=== PATIENT | female | born 1995 | race Caucasian/White ===

== ENCOUNTER 2017-04-24 03:31 | Emergency (ER) | payer OTHER, BC ==
[2017-04-24 04:16] LABS: CHLORIDE,CL 101 mmol/L (98-107); SODIUM,NA 141 mmol/L (136-145)
[2017-04-24 04:22] VITALS: BP 131/79
[2017-04-24] MEDS ORDERED: Potassium Chloride 20 MEQ Tab.ER PO ONE ×2 (04:23→04:50)
--- NOTE | 2017-04-24 04:35 | EDM.PDOC ---
ED HPI GENERAL MEDICAL PROBLEM - General Chief Complaint: General Stated Complaint: chest pain Time Seen by Provider: 04/24/17 04:10 Source of Information: Reports: Patient History Limitations: Reports: No Limitations - History of Present Illness INITIAL COMMENTS - FREE TEXT/NARRATIVE: Patient brought in from [facility] after developing substernal chest pain around midnight. Pain is worse with breathing, making her feel a bit SOB. No sweating or nausea. No GI complaints. Smokes at work. Denies cough or recent URI. Sometimes has numbness in left arm. 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 Last 4 people assigned to this job got injured eventually, the most recent one with a rotator cuff tear, the one before that hit on the head by a fan. Has been having problems with chronic soreness around shoulder blades for some time. She feels that that soreness has now moved to her chest area. Pain in upper back/shoulders improves on weekends but worsens again at work. Has been going to the chiropractor and being told "ribs are out". Recently but have not been getting along. She moved to an apartment this weekend to spend time apart. Was not lifting anything heavier than clothes. 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 They before they do'. Musculoskeletal History: Reports: Other (See Below) Other Musculoskeletal History: 'I've been in & out of the chiropractor the last couple months with ribs being out of place'. Neurological History: Reports: None Psychiatric History: Reports: None Endocrine/Metabolic History: Reports: None Hematologic History: Reports: None Immunologic History: Reports: None Oncologic (Cancer) History: Reports: None Dermatologic History: Reports: None - Infectious Disease History Infectious Disease History: Reports: None - Past Surgical History Head Surgeries/Procedures: Reports: None Respiratory Surgical History: Reports: None GI Surgical History: Reports: None Female Surgical History: Reports: None Neurological Surgical History: Reports: None Musculoskeletal Surgical History: Reports: None Oncologic Surgical History: Reports: None Dermatological Surgical History: Reports: None Social & Family History - Family History Family Medical History: Noncontributory - Tobacco Use Smoking Status *Q: Current Every Day Smoker Years of Tobacco use: 5 Packs/Tins Daily: 0.4 - Caffeine Use Caffeine Use: Reports: Coffee Caffeine Use Comment: Very little caffeine per patient - Recreational Drug Use Recreational Drug Use: No ED ROS GENERAL - Review of Systems Review Of Systems: See Below Constitutional: Reports: No Symptoms HEENT: Reports: No Symptoms Respiratory: Reports: Pleuritic Chest Pain. Denies: Wheezing, Cough Cardiovascular: Reports: Chest Pain. Denies: Lightheadedness, Palpitations, Syncope GI/Abdominal: Reports: No Symptoms : Reports: No Symptoms Musculoskeletal: Reports: Neck Pain, Shoulder Pain, Back Pain Skin: Reports: No Symptoms Neurological: Reports: Paresthesia (left arm at times) Psychiatric: Reports: No Symptoms Hematologic/Lymphatic: Reports: No Symptoms ED EXAM, GENERAL - Physical Exam Exam: See Below Exam Limited By: No Limitations General Appearance: Alert, WD/WN, No Apparent Distress Eye Exam: Bilateral Eye: EOMI, PERRL Ears: Normal External Exam Nose: No: Nasal Deformity, Nasal Swelling, Nasal Drainage Throat/Mouth: Normal Inspection, Normal Voice, No Airway Compromise Head: Atraumatic, Normocephalic Neck: Supple, Other (tender along posterior neck bilaterally, muscles tight) Respiratory/Chest: No Respiratory Distress, Lungs Clear, Normal Breath Sounds, Other (tender to palpation over bilateral pecs, around sternum) Cardiovascular: Normal Peripheral Pulses, Regular Rate, Rhythm, No Edema, No Murmur Peripheral Pulses: 2+: Radial (L), Radial (R) GI/Abdominal: Normal Bowel Sounds, Soft, Non-Tender, No Distention (Female) Exam: Deferred Rectal (Female) Exam: Deferred Back Exam: Paraspinal Tenderness (thoracic area.), Other (generally tender along soft tissue of upper back/trapezius bilaterally). No: CVA Tenderness (L) , CVA Tenderness (R), Decreased Range of Motion, Vertebral Tenderness Extremities: Normal Inspection, Normal Range of Motion, Non-Tender, No Pedal Edema, Normal Capillary Refill Neurological: Alert, Oriented, Normal Cognition, Normal Gait, No Motor/Sensory Deficits Psychiatric: Flat Affect Skin Exam: Warm, Dry, Intact, Normal Color EKG INTERPRETATION EKG Date: 04/24/17 Time: 03:42 Rhythm: NSR Rate (Beats/Min): 76 [place]: Normal P-Wave: Present QRS: Normal ST-T: Normal QT: Normal Comparison: NA - No Prior EKG Course - Vital Signs Last Recorded V/S: Last Vital Signs Temp 36.9 C 04/24/17 03:34 Pulse 81 04/24/17 04:15 Resp 16 04/24/17 04:15 BP 131/79 04/24/17 04:15 Pulse Ox 100 04/24/17 04:15 - Orders/Labs/Meds Orders: Active Orders 24 hr Category Date Time Status EKG Documentation Completion [RC] ASDIRECTED Care 04/24/17 03:48 Active Chest 2V [CR] Urgent Exams 04/24/17 04:39 Ordered Labs: Laboratory Tests 04/24/17 04/24/17 04/24/17 Range/Units 03:55 03:55 03:55 WBC 11.2 H (4.0-10.2) K/uL RBC 4.23 (3.77-5.09) M/uL Hgb 13.1 (11.7-15.5) g/dL Hct 37.8 (34.0-46.0) % MCV 89.4 (84.0-98.0) fL MCH 31.0 (28.2-33.3) pg MCHC 34.7 (31.7-36.0) g/dL RDW 12.5 (11.2-14.1) % Plt Count 252 (150-350) K/uL Neut % (Auto) 69.6 (45.0-80.0) % Lymph % (Auto) 22.7 (10.0-50.0) % [place] % (Auto) 6.5 (2.0-14.0) % Eos % (Auto) 0.9 (0.0-5.0) % Baso % (Auto) 0.3 (0.0-2.0) % Neut # (Auto) 7.78 H (1.40-7.00) K/uL Lymph # (Auto) 2.53 (0.50-3.50) K/uL [place] # (Auto) 0.72 (0.00-1.00) K/uL Eos # (Auto) 0.10 (0.00-0.50) K/uL Baso # (Auto) 0.03 (0.00-0.20) K/uL D-Dimer, Quantitative < 100 (0-400) ng/mL Sodium 141 (136-145) mmol/L Potassium 3.3 L (3.5-5.1) mmol/L Chloride 101 (98-107) mmol/L Carbon Dioxide 24.2 (21.0-32.0) mmol/L BUN 18 (7-18) mg/dL Creatinine 0.91 (0.51-1.17) mg/dL Est Cr Clr Drug Dosing 85.16 mL/min Estimated GFR (MDRD) > 60 mL/min Glucose 84 (74-106) mg/dL Calcium 9.3 (8.5-10.1) mg/dL Troponin I 0.000 (0.000-0.056) ng/mL Meds: Medications Discontinued Medications Generic Name Dose Route Start Last Admin Trade Name Freq PRN Reason Stop Dose Admin Ketorolac Tromethamine 30 mg 04/24/17 05:11 04/24/17 05:15 Toradol IVPUSH 04/24/17 05:12 30 mg ONETIME ONE Administration Potassium Chloride 40 meq 04/24/17 04:23 04/24/17 04:47 Klor-Con M20 PO 04/24/17 04:24 40 meq ONETIME ONE Administration Potassium Chloride 20 meq 04/24/17 04:50 04/24/17 04:53 Klor-Con M20 PO 04/24/17 04:51 20 meq ONETIME ONE Administration - Radiology Interpretation Free Text/Narrative:: chest xray unremarkable - Re-Assessments/Exams Free Text/Narrative Re-Assessment/Exam: 04/24/17 05:26 CBC/Chem/Trop/EKG/DDimer unremarkable. Pain is reproducible with palpation over chest. Suspect musculoskeletal cause. Given patient's current home stresses with from , personal stress is likely an added factor. Discussed results with patient. Recommended limited duty for one week and follow up with primary provider. Precautions reviewed. Departure - Departure Time of Disposition: 05:21 Disposition: Home, Self-Care 01 Condition: Good Clinical Impression: Anterior chest wall pain, Repetitive movement, Pain, upper back, Hypokalemia - Discharge Information Instructions: Hypokalemia, Chest Wall Pain, [id number] Forms: ED Department Discharge Additional Instructions: Recommend eating more potassium rich food. You may benefit from taking a small potassium supplement such as 10meq daily. Consider dietary change and stress management as discussed. Yoga may also be helpful and assist the chronic tightness that you have. Make an appointment to follow up with a primary clinic for recheck next Monday to see if additional steps need to be taken to address your pain complaints. You will likely require a change in workstation at [facility] based on you current problems and their likely association to the repetitive lifting work you are currently doing. Follow up as needed if problems change/worsen. - My Orders Last 24 Hours: My Active Orders 04/24/17 03:48 EKG Documentation Completion [RC] ASDIRECTED 04/24/17 04:39 Chest 2V [CR] Urgent - Assessment/Plan Last 24 Hours: My Active Orders 04/24/17 03:48 EKG Documentation Completion [RC] ASDIRECTED 04/24/17 04:39 Chest 2V [CR] Urgent
[2017-04-24] MEDS ORDERED: Ketorolac 30 MG/ML SDV IVPUSH ONE (05:11)
== END 2017-04-24 05:45 | disposition home or self-care (01) ==
LOC: LL.ED 03:31
DX: E87.6 Hypokalemia (principal); R07.89 Other chest pain; M54.6 Pain in thoracic spine; F17.210 Nicotine dependence, cigarettes, uncomplicated; Z91.040 Latex allergy status
CPT/HCPCS: 36415; 71046; 80048; 84484; 85025; 85379; 93005; 96374; 99284; A9270; J1885

== ENCOUNTER 2019-08-07 21:36 | Emergency (ER) | payer BC, OTHER ==
[2019-08-07 21:51] VITALS: BP 121/69; PULSE 104
[2019-08-07] MEDS ORDERED: Sodium Chloride 0.9% 10 ML Syringe FLUSH PRN (21:54)
[2019-08-07] MEDS ORDERED: Acetaminophen 325 MG Tab PO ONE (21:54)
--- NOTE | 2019-08-07 21:54 | EDM.PDOC ---
ED HPI GENERAL MEDICAL PROBLEM - General Chief Complaint: Fever Stated Complaint: fever Time Seen by Provider: 08/07/19 21:54 Source of Information: Reports: Patient, Old Records ([facility] chart/EMR) History Limitations: Reports: No Limitations - History of Present Illness INITIAL COMMENTS - FREE TEXT/NARRATIVE: The patient was brought to the emergency room via private automobile by her mother for evaluation of persistent fever with maximum temperature of 102.3 yesterday evening at 21:30 hours. Patient did take 650 mg of Tylenol at 21:00 hours this evening with no known exposure to infection, including mononucleosis, strep throat, etc., although she was treated for tonsillitis without a strep screen on 04/27/19. Earlier today she received her negative COVID-19 test results, which was collected at the [facility] in [place] on 05/06/19. Symptoms have been associated with 8/10 bilateral frontal headaches, 9/10 bilateral low back pain and nausea with no history of injury, etc.. She denies any gross hematuria, colic, or other UTI symptoms. No recent history of abdominal pain, heartburn, emesis diarrhea, melena, gross hematochezia, or any food intolerance, including fatty foods, etc. with normal bowel movement earlier this morning. The patient also denies any recent cough, wheezing, dyspnea, etc.. No history of recent visual changes, diplopia, change in mental status, or other change in neurological status. She does state that she has been drinking plenty of fluids secondary to the current local heat wave. Onset: Gradual Onset Date: 08/04/19 Duration: Constant, Getting Worse Location: Reports: Head, Back. Denies: Face, Neck, Chest, Abdomen, Pelvis, Upper Extremity, Left, Upper Extremity, Right, Radiates to Quality: Reports: Same as Previous Episode, Throbbing Severity: Moderate Improves with: Reports: None Worsens with: Reports: None Context: Reports: Other (As above). Denies: Sick Contact, Trauma Associated Symptoms: Reports: Fever/Chills, Headaches, Nausea/Vomiting (No emesis). Denies: Confusion, Chest Pain, Cough, Diaphoresis, Loss of Appetite, Malaise, Rash, Shortness of Breath, Syncope Treatments SUGAR PLANTATION MANAGER: Reports: Acetaminophen Back Pain Score (Numeric/FACES): 2 - Related Data Allergies Allergy/AdvReac Type Severity Reaction Status Date / Time Latex, Natural Rubber Allergy Rash Verified 08/07/19 21:41 Home Meds: Home Meds Citalopram [Citalopram HBr] 20 mg PO DAILY 08/07/19 [History] Levothyroxine [Synthroid] 50 mcg PO ACBREAKFAST #60 tab 08/07/19 [Rx] Nitrofurantoin Monohyd/M-Cryst [Macrobid 100 mg Capsule] 100 mg PO BID #14 capsule 08/07/19 [Rx] busPIRone [Buspar] 10 mg PO DAILY 08/07/19 [History] Past Medical History HEENT History: Reports: Hard of Hearing, Other (See Below). 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 Cardiovascular History: Reports: None. Denies: Afib, Aneurysm, Arrhythmia, Blood Clots/VTE/DVT, CAD, Heart Murmur, High Cholesterol, Hypertension, Syncope Respiratory History: Reports: None. Denies: Asthma, COPD, Intubation, Previous, PE, Pneumothorax Gastrointestinal History: Reports: None. Denies: Celiac Disease, Cholelithiasis, Chronic Constipation, Chronic Diarrhea, Colon Polyp, Fecal Incontinence, Gastritis, GERD, GI Bleed, Hiatal Hernia, Inflammatory Bowel Dis ease, Irritable Bowel Syndrome, Jaundice, PUD Genitourinary History: Reports: UTI, Recurrent. Denies: Acute Renal Failure, Chronic Renal Insuffiency, Renal Calculus, STD, Urinary Incontinence MAKEUP INSTRUCTOR History: Reports: , Other (See Below). Denies: Dysfunctional Uterine Bleeding, Endometriosis, Fibroids LMP (Approximate): Other (See Below) Other MAKEUP INSTRUCTOR History: History of oligomenorrhea with menses starting today and previous LMP of 06/14/19. Full term delivery of twins by complicated by hemorrhage and secondary anemia with no transfusion required. Difficult delivery with the patient apparently refusing recommended at that time. One of the twins did pass away at 12 weeks of age of unknown etiology with otherwise no complications during her . Musculoskeletal History: Reports: Arthritis, Back Pain, Chronic, Osteoarthritis, Other (See Below). Denies: Fracture, Gout, Neck Pain, Chronic, RA, SLE Other Musculoskeletal History: Previous chronic low back pain secondary to her work at [employer] with frequent chiropractic visits. Neurological History: Reports: Concussion, Head Trauma, Other (See Below). Denies: Cerebral Aneurysms, CVA, Headaches, Chronic, Migraines, MS, Parkinson's, Seizure, TIA Other Neuro History: Head concussion at age 15. Psychiatric History: Reports: Addiction, Anxiety, Depression, Panic Attack, Psych Hospitalization(s), Suicide Attempt, Suicidal Ideation, Other (See Below). Denies: Abuse, Victim of, ADHD Other Psychiatric History: Previous inpatient hospitalization at [facility] secondary to suicide attempt the patient cutting her wrist at age 17. Additional alcohol abuse history since age 22 with previous DWIs 2. Endocrine/Metabolic History: Reports: Obesity/BMI 30+, Other (See Below). Denies: Diabetes, Gestational, Diabetes, Type I, Diabetes, Type II, Diabetes Mellitus, Type 3c, Hypothyroidism, IDDM Other Endocrine/Metabolic History: Hypokalemia. Hematologic History: Reports: Anemia, Other (See Below). Denies: Blood Transfusion(s) Other Hematologic History: anemia secondary to difficult delivery as above with no transfusion required. Immunologic History: Reports: None. Denies: AIDS, HIV, SLE Oncologic (Cancer) History: Reports: None. Denies: Breast, Cervix, Hodgkin's Lymphoma, Leukemia, Lymphoma, Malignant Melanoma, Non-Hodgkin's Lymphoma, Ovarian, Squamous Cell Carcinoma, Uterine Dermatologic History: Reports: None. Denies: Eczema, Psoriasis - Infectious Disease History Infectious Disease History: Reports: Chicken Pox. Denies: C-Difficile, Measles, Meningitis, Mononucleosis, MRSA, Mumps, Pertussis (Whooping Cough), Rheumatic Fever, Rubella, Scarlet Fever, Shingles, TB, VRE - Past Surgical History Head Surgeries/Procedures: Reports: None HEENT Surgical History: Reports: None. Denies: Adenoidectomy, Cataract Surgery, Eye Surgery, Laser Surgery, LASIK, Myringotomy w Tube(s), Naso-Sinus Surgery, Oral Surgery, Tonsillectomy Cardiovascular Surgical History: Reports: None. Denies: Varicose Respiratory Surgical History: Reports: None. Denies: Thoracentesis GI Surgical History: Reports: None. Denies: Appendectomy, Cholecystectomy, Colonoscopy, EGD, Hernia, Abdominal, Hernia, Inguinal, Hernia Repair/Other Female Surgical History: Reports: None. Denies: D&C, Tubal Ligation Endocrine Surgical History: Reports: None Neurological Surgical History: Reports: None. Denies: C-Spine, Discectomy, Laminectomy, Lumbar Spine, Sacral Spine, Spinal Fusion, Thoracic Spine Musculoskeletal Surgical History: Reports: None. Denies: Arthroscopic Procedure, Carpal Tunnel, Ganglion Cyst, Joint Replacement, ORIF, Shoulder Surgery Oncologic Surgical History: Reports: None Dermatological Surgical History: Reports: None - Past Imaging History Past Imaging History: Reports: CAT Scan (CT scan of the abdomen and pelvis on 07/20/12.), Ultrasound (OB ultrasounds) Social & Family History - Family History Family Medical History: Noncontributory - Tobacco Use Smoking Status *Q: Current Every Day Smoker Tobacco Use Within Last Twelve Months: Cigarettes Years of Tobacco use: 6 Packs/Tins Daily: 1 Packs/Tins Daily Comment: Started smoking at age 18 with maximum use of 1 packs per day, although the patient is trying to quit smoking and has not used cigarettes secondary to her current illness for the last few days. She did not smoke during her . Used Tobacco, but Quit: No Smoking Cessation Information Provided To Patient: Yes Second Hand Smoke Exposure: Yes Second Hand Smoke Education Provided: Yes Second Hand Smoke Education Comment: Roommate smokes. - Caffeine Use Caffeine Use: Reports: Soda. Denies: Coffee, Energy Drinks, Tea Caffeine Use Comment: 2 sodas per day. - Alcohol Use Alcohol Use History: Yes Days Per Week of Alcohol Use: 6 Number of Drinks Per Day Comment: Alcohol abuse since age 22 with no previous alcohol treatment program and patient currently trying to stop alcohol use Alcohol Use in Last Twelve Months: Yes Alcohol Use Frequency: Binges - Recreational Drug Use Recreational Drug Use: No Drug Use in Last 12 Months: No Recreational Drug Type: Denies: Amphetamines (Speed), Cocaine, Heroin, Inhalants (Glues, Solvents, Aerosols), LSD (Acid), Marijuana/Hashish, Methamphetamine, Morphine, Oxycodone - Living Situation & Occupation Living situation: Reports: (However currently and seeking a divorce), Other (Her child and relative roommate) Occupation: Employed ([employer]) ED ROS GENERAL - Review of Systems Review Of Systems: Comprehensive ROS is negative, except as noted in HPI. ED EXAM, GENERAL - Physical Exam Exam: See Below Exam Limited By: No Limitations General Appearance: Alert, WD/WN, No Apparent Distress, Anxious (Mild) Eye Exam: Bilateral Eye: EOMI, Normal Inspection (No nystagmus), PERRL Ears: Normal External Exam, Normal Canal, Hearing Grossly Normal, Normal TMs Nose: Normal Inspection, Normal Mucosa, No Blood Throat/Mouth: Normal Inspection, Normal Lips, Normal Teeth, Normal Gums, Normal Voice, No Airway Compromise, Other (tongue stud). No: Normal Oropharynx (+1 erythema in the posterior pharynx with no pinpoint white exudates or peritonsillar abscess) Head: Atraumatic, Normocephalic. No: Facial Swelling, Facial Tenderness, Sinus Tenderness Neck: Normal Inspection, Supple, Non-Tender, Full Range of Motion. No: Lymphadenopathy (L), Lymphadenopathy (R), Thyromegaly Respiratory/Chest: No Respiratory Distress, Lungs Clear, Normal Breath Sounds, No Accessory Muscle Use, Chest Non-Tender. No: Pleural Rub, Retractions Cardiovascular: Normal Peripheral Pulses, No Edema, No Gallop, No JVD, No Murmur, No Rub, Tachycardia (Mild secondary to fever. Regular rhythm). No: Gallop/S3, Gallop/S4, Friction Rub Peripheral Pulses: 2+: Radial (L), Radial (R) GI/Abdominal: Normal Bowel Sounds, Soft, Non-Tender, No Organomegaly, No Distention, No Abnormal Bruit, No Mass, Other (Obese). No: Guarding (Female) Exam: Deferred Rectal (Female) Exam: Deferred Back Exam: Full Range of Motion, Paraspinal Tenderness (Equivocal bilateral lower lumbar). No: CVA Tenderness (L), CVA Tenderness (R), Muscle Spasm, Vertebral Tenderness Extremities: Normal Inspection, Normal Range of Motion, Non-Tender, No Pedal Edema, Normal Capillary Refill. No: Jeff's Sign Neurological: Alert, Oriented, CN II-XII Intact, Normal Cognition, Normal Gait, No Motor/Sensory Deficits Psychiatric: Anxious (Mild), Depressed Mood (Borderline) Skin Exam: Warm, Dry, Intact, Normal Color, No Rash, Stud(s) (As above with additional piercings in the auricles bilaterally), Tattoo(s) (Multiple). No: Diaphoretic, Ecchymosis, Jaundice, Pallor, Petechiae, Wound/Incision Lymphatic: No Adenopathy Course - Vital Signs Last Recorded V/S: Last Vital Signs Temp 38.5 C H 08/07/19 21:50 Pulse 104 H 08/07/19 21:50 Resp 14 08/07/19 21:50 BP 121/69 08/07/19 21:50 Pulse Ox 95 08/07/19 21:50 Vital Signs - 24 hr 08/07/19 21:50 Temperature [ 38.5 C H Oral] Pulse, 104 H Peripheral [ Right Pulse Oximetry] Respiratory 14 Rate Blood Pressure 121/69 [Left Upper Arm ] O2 Sat by Pulse 95 Oximetry - Orders/Labs/Meds Orders: Active Orders 24 hr Category Date Time Status Oxygen Therapy, ED [RC] PRN Care 08/07/19 21:55 Active Peripheral IV Care [RC] . DIRECTED Care 08/07/19 21:55 Active Pulse Oximetry [RC] CONTINUOUS Care 08/07/19 21:55 Active Up With Assistance [RC] ASDIRECTED Care 08/07/19 21:55 Active Chest 2V [CR] Stat Exams 08/07/19 21:55 Taken CULTURE BLOOD [BC] Stat Lab 08/07/19 22:25 Received CULTURE BLOOD [BC] Stat Lab 08/07/19 22:50 Received CULTURE STREP A CONFIRMATION [RM] Stat Lab 08/07/19 22:30 Results CULTURE URINE [RM] Routine Lab 08/07/19 22:40 Received STREP SCRN A RAPID W CULT CONF [RM] Stat Lab 08/07/19 22:30 Results Blood Culture x2 Reflex Set [OM.PC] Stat Oth 08/07/19 21:55 Ordered Obtain Past Medical Record [OM.PC] Stat Oth 08/07/19 21:55 Active Peripheral IV Insertion Adult [OM.PC] Stat Oth 08/07/19 21:55 Ordered Resuscitation Status Routine Resus Stat 08/07/19 21:54 Ordered Labs: Laboratory Tests 08/07/19 08/07/19 08/07/19 Range/Units 22:25 22:25 22:25 WBC 14.0 H (4.0-10.2) K/uL RBC 4.75 (3.77-5.09) M/uL Hgb 14.3 (11.7-15.5) g/dL Hct 43.1 (34.0-46.0) % MCV 90.7 (84.0-98.0) fL MCH 30.1 (28.2-33.3) pg MCHC 33.2 (31.7-36.0) g/dL RDW 13.0 (11.2-14.1) % Plt Count 241 (150-350) K/uL Neut % (Auto) 77.0 (45.0-80.0) % Lymph % (Auto) 11.6 (10.0-50.0) % Scott % (Auto) 11.2 (2.0-14.0) % Eos % (Auto) 0.1 (0.0-5.0) % Baso % (Auto) 0.1 (0.0-2.0) % Neut # (Auto) 10.80 H (1.40-7.00) K/uL Lymph # (Auto) 1.63 (0.50-3.50) K/uL Scott # (Auto) 1.57 H (0.00-1.00) K/uL Eos # (Auto) 0.02 (0.00-0.50) K/uL Baso # (Auto) 0.02 (0.00-0.20) K/uL Sodium 135 L (136-145) mmol/L Potassium 4.1 (3.5-5.1) mmol/L Chloride 100 (98-107) mmol/L Carbon Dioxide 24.7 (21.0-32.0) mmol/L BUN 16 (7-18) mg/dL Creatinine 1.15 (0.51-1.17) mg/dL Est Cr Clr Drug Dosing TNP Estimated GFR (MDRD) 58 mL/min Glucose 93 (74-106) mg/dL Lactic Acid 0.8 (0.4-2.0) mmol/L Uric Acid 4.9 (2.6-7.2) mg/dL Calcium 9.3 (8.5-10.1) mg/dL Magnesium 2.0 (1.8-2.4) mg/dL Total Bilirubin 0.5 (0.2-1.0) mg/dL AST 36 (15-37) U/L ALT 46 (12-78) U/L Alkaline Phosphatase 116 (46-116) IU/L Total Protein 8.9 H (6.4-8.2) g/dL Albumin 3.4 (3.4-5.0) g/dL TSH, Ultra Sensitive (0.358-3.740) mIU/mL HCG, Qual (NEGATIVE) Specimen Type Urine Color Urine Appearance Urine pH (5.0-9.0) Ur Specific Clarkia (1.005-1.030) Urine Protein (NEGATIVE) mg/dL Urine Glucose (UA) (NEGATIVE) mg/dL Urine Ketones (NEGATIVE) mg/dL Urine Occult Blood (NEGATIVE) Urine Nitrite (NEGATIVE) Urine Bilirubin (NEGATIVE) Urine Urobilinogen (0.2-1.0) E.U./dL Ur Leukocyte Esterase (NEGATIVE) Urine RBC /HPF Urine WBC /HPF Ur Epithelial Cells /LPF Urine Bacteria (NONE TO FEW) /HPF Urine Other Monoscreen (NEGATIVE) 08/07/19 08/07/19 08/07/19 Range/Units 22:25 22:25 22:25 WBC (4.0-10.2) K/uL RBC (3.77-5.09) M/uL Hgb (11.7-15.5) g/dL Hct (34.0-46.0) % MCV (84.0-98.0) fL MCH (28.2-33.3) pg MCHC (31.7-36.0) g/dL RDW (11.2-14.1) % Plt Count (150-350) K/uL Neut % (Auto) (45.0-80.0) % Lymph % (Auto) (10.0-50.0) % Scott % (Auto) (2.0-14.0) % Eos % (Auto) (0.0-5.0) % Baso % (Auto) (0.0-2.0) % Neut # (Auto) (1.40-7.00) K/uL Lymph # (Auto) (0.50-3.50) K/uL Scott # (Auto) (0.00-1.00) K/uL Eos # (Auto) (0.00-0.50) K/uL Baso # (Auto) (0.00-0.20) K/uL Sodium (136-145) mmol/L Potassium (3.5-5.1) mmol/L Chloride (98-107) mmol/L Carbon Dioxide (21.0-32.0) mmol/L BUN (7-18) mg/dL Creatinine (0.51-1.17) mg/dL Est Cr Clr Drug Dosing Estimated GFR (MDRD) mL/min Glucose (74-106) mg/dL Lactic Acid (0.4-2.0) mmol/L Uric Acid (2.6-7.2) mg/dL Calcium (8.5-10.1) mg/dL Magnesium (1.8-2.4) mg/dL Total Bilirubin (0.2-1.0) mg/dL AST (15-37) U/L ALT (12-78) U/L Alkaline Phosphatase (46-116) IU/L Total Protein (6.4-8.2) g/dL Albumin (3.4-5.0) g/dL TSH, Ultra Sensitive 4.065 H (0.358-3.740) mIU/mL HCG, Qual Negative (NEGATIVE) Specimen Type Urine Color Urine Appearance Urine pH (5.0-9.0) Ur Specific Clarkia (1.005-1.030) Urine Protein (NEGATIVE) mg/dL Urine Glucose (UA) (NEGATIVE) mg/dL Urine Ketones (NEGATIVE) mg/dL Urine Occult Blood (NEGATIVE) Urine Nitrite (NEGATIVE) Urine Bilirubin (NEGATIVE) Urine Urobilinogen (0.2-1.0) E.U./dL Ur Leukocyte Esterase (NEGATIVE) Urine RBC /HPF Urine WBC /HPF Ur Epithelial Cells /LPF Urine Bacteria (NONE TO FEW) /HPF Urine Other Monoscreen Negative (NEGATIVE) 08/07/19 Range/Units 22:40 WBC (4.0-10.2) K/uL RBC (3.77-5.09) M/uL Hgb (11.7-15.5) g/dL Hct (34.0-46.0) % MCV (84.0-98.0) fL MCH (28.2-33.3) pg MCHC (31.7-36.0) g/dL RDW (11.2-14.1) % Plt Count (150-350) K/uL Neut % (Auto) (45.0-80.0) % Lymph % (Auto) (10.0-50.0) % Scott % (Auto) (2.0-14.0) % Eos % (Auto) (0.0-5.0) % Baso % (Auto) (0.0-2.0) % Neut # (Auto) (1.40-7.00) K/uL Lymph # (Auto) (0.50-3.50) K/uL Scott # (Auto) (0.00-1.00) K/uL Eos # (Auto) (0.00-0.50) K/uL Baso # (Auto) (0.00-0.20) K/uL Sodium (136-145) mmol/L Potassium (3.5-5.1) mmol/L Chloride (98-107) mmol/L Carbon Dioxide (21.0-32.0) mmol/L BUN (7-18) mg/dL Creatinine (0.51-1.17) mg/dL Est Cr Clr Drug Dosing Estimated GFR (MDRD) mL/min Glucose (74-106) mg/dL Lactic Acid (0.4-2.0) mmol/L Uric Acid (2.6-7.2) mg/dL Calcium (8.5-10.1) mg/dL Magnesium (1.8-2.4) mg/dL Total Bilirubin (0.2-1.0) mg/dL AST (15-37) U/L ALT (12-78) U/L Alkaline Phosphatase (46-116) IU/L Total Protein (6.4-8.2) g/dL Albumin (3.4-5.0) g/dL TSH, Ultra Sensitive (0.358-3.740) mIU/mL HCG, Qual (NEGATIVE) Specimen Type Urincc Urine Color Dark yellow Urine Appearance Cloudy Urine pH 5.5 (5.0-9.0) Ur Specific Clarkia 1.020 (1.005-1.030) Urine Protein 100 H (NEGATIVE) mg/dL Urine Glucose (UA) Negative (NEGATIVE) mg/dL Urine Ketones Negative (NEGATIVE) mg/dL Urine Occult Blood Large H (NEGATIVE) Urine Nitrite Negative (NEGATIVE) Urine Bilirubin Negative (NEGATIVE) Urine Urobilinogen 0.2 (0.2-1.0) E.U./dL Ur Leukocyte Esterase Moderate H (NEGATIVE) Urine RBC 0-5 /HPF Urine WBC >100 H /HPF Ur Epithelial Cells Many H /LPF Urine Bacteria Many H (NONE TO FEW) /HPF Urine Other See note H Monoscreen (NEGATIVE) Urine specimen set up for culture and sensitivity Blood Cultures 2 were collected. Microbiology 08/07/19 22:30 Group A Streptococcus Rapid Screen - Final Throat NEGATIVE STREP A SCREEN REFERENCE RANGE: NEGATIVE Meds: Medications Discontinued Medications Generic Name Dose Route Start Last Admin Trade Name Freq PRN Reason Stop Dose Admin Ceftriaxone Sodium 1 gm 08/07/19 23:19 Rocephin IM 08/07/19 23:20 ONETIME ONE Famotidine 40 mg 08/07/19 21:58 08/07/19 23:00 Pepcid IVPUSH 08/07/19 21:59 40 mg ONETIME ONE Administration Lactated Ringer's 1,000 mls @ 999 mls/hr 08/07/19 21:58 08/07/19 23:01 Ringers, Lactated IV 08/07/19 22:58 999 mls/hr .BOLUS ONE Administration Ceftriaxone Sodium 1 gm/ 100 mls @ 200 mls/hr 08/07/19 23:25 08/08/19 00:04 Sodium Chloride IV 08/07/19 23:54 200 mls/hr ONETIME ONE Administration Ketorolac Tromethamine 30 mg 08/07/19 21:58 08/07/19 23:00 Toradol IVPUSH 08/07/19 21:59 30 mg ONETIME ONE Administration Sodium Chloride 10 ml 08/07/19 21:54 08/07/19 23:00 Saline Flush FLUSH 10 ml ASDIRECTED PRN Administration Keep Vein Open - Radiology Interpretation Free Text/Narrative:: Chest x-ray, PA and lateral, shows a mild hiatal hernia with no evidence of cardiomegaly, pulmonary infiltrates, pneumothorax, CHF, etc. Departure - Departure Time of Disposition: 00:51 Disposition: Home, Self-Care 01 Condition: Good Clinical Impression: Mixed anxiety depressive disorder, Tobacco abuse counseling, Hyponatremia, Hypothyroidism (acquired) Low back pain Qualifiers: Chronicity: acute Back pain laterality: bilateral Sciatica presence: without sciatica Qualified Code(s): M54.5 - Low back pain UTI (urinary tract infection) Qualifiers: Urinary tract infection type: acute cystitis Hematuria presence: with hematuria Qualified Code(s): N30.01 - Acute cystitis with hematuria - Discharge Information *PRESCRIPTION DRUG MONITORING PROGRAM REVIEWED*: Not Applicable *COPY OF PRESCRIPTION DRUG MONITORING REPORT IN PATIENT TIM: Not Applicable Prescriptions: Nitrofurantoin Monohyd/M-Cryst [Macrobid 100 mg Capsule] 100 mg PO BID #14 capsule Levothyroxine [Synthroid] 50 mcg PO ACBREAKFAST #60 tab Instructions: Steps to Quit Smoking, [id number], Health Risks of Smoking, Hypothyroidism, Urinary Tract Infection, Adult, [id number], Back Exercises, [id number], Chronic Back Pain, [id number] Referrals: PCP,Unknown [Primary Care Provider] - Forms: ED Department Discharge, ED Return to Work/School Form Additional Instructions: 1. Followup with local provider in 2 days as directed for reevaluation and recommended repeat CBC. Bring these discharge instructions with you to that visit and also to the follow up visit with your regular provider as already scheduled in one week as below. 2. Tylenol 650 mg by mouth every 4 hours and/or OTC ibuprofen 2-3 tabs by mouth every 6 hours with food as directed./needed. You may stagger these medications for 48-72 hours only, which essentially means that you are receiving a pain medication about every 2 hours. Next dose of ibuprofen in 6 hours as needed secondary to medications given in the emergency room 3. BenGay or equivalent, heating pad, and/or ice packs as directed. 4. Immediately after this visit verify that your cellular telephone's voicemail has been activated and is empty. Also verify that your home telephone's answering machine is operating properly and has space to receive messages. Note that it is sometimes necessary for us to be able to contact you at a later date to discuss your medical care. 5. Please remember that we are ALWAYS here for you and want to answer any questions you may have. Feel free to call the hospital any time and we call you back IVONNE. 6. Stop all tobacco use IVONNE as directed/per provided information and consider contacting Quit LIne, etc.. 7. Congratulations about trying to quit smoking and stopping alcohol use. 8. Urine tests should be repeated at follow up visit, which has already been scheduled with your regular provider in one week, with possible repeat urine culture,etc. at that time. Today's urine culture is pending with results in about 2-3 days. We will call you, if we need to change your therapy. 9. Encourage oral fluids, including daily cranberry use, etc.as directed. 10. Work excuse- See Form 11. Your TSH should be repeated in 4 weeks Sepsis Event Note (ED) - Evaluation Sepsis Screening Result: No Definite Risk - Focused Exam Vital Signs: Vital Signs Temp Pulse Resp BP Pulse Ox 08/07/19 21:50 38.5 C H 104 H 14 121/69 95 - Problem List & Annotations (1) UTI (urinary tract infection) SNOMED Code(s): 50032639 Code(s): N39.0 - URINARY TRACT INFECTION, SITE NOT SPECIFIED Status: Acute Priority: High Onset Date: ~08/04/19 Annotation/Comment:: Note moderate leukocytosis. Blood cultures 2 were collected. Specimen was set up for culture and sensitivity. Various therapeutic options were discussed with the patient not wishing to be hospitalized at this time. IV Rocephin given in the emergency room with initiation of Macrobid tomorrow morning and close follow-up as per discharge instructions. Previous history of recurrent UTIs. Lactic acid level was normal with no clinical evidence of sepsis. Qualifiers: Urinary tract infection type: acute cystitis Hematuria presence: with hematuria Qualified Code(s): N30.01 - Acute cystitis with hematuria (2) Low back pain SNOMED Code(s): 562810488 Code(s): M54.5 - LOW BACK PAIN Status: Acute Priority: High Onset Date: ~08/04/19 Annotation/Comment:: Symptomatic relief as per discharge instructions. IV Toradol given in the emergency room. Patient may continue managed care manager as needed. No history of acute injury with previous history of chronic low back pain as above. Qualifiers: Chronicity: acute Back pain laterality: bilateral Sciatica presence: without sciatica Qualified Code(s): M54.5 - Low back pain (3) Mixed anxiety depressive disorder SNOMED Code(s): 340724260 Code(s): F41.8 - OTHER SPECIFIED ANXIETY DISORDERS Status: Chronic Priority: Medium Annotation/Comment:: Stable with current medical therapy by patient history with no history of alcohol abuse as above, however the patient is trying to stop alcohol use at this time. 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 Emotional support was provided. No odor of alcohol, evidence of intoxication, etc. at this visit. (4) Tobacco abuse counseling SNOMED Code(s): 010416957, 515204040, 429898820 Code(s): Z71.6 - TOBACCO ABUSE COUNSELING Status: Chronic Priority: Medium Annotation/Comment:: Tobacco cessation strongly encouraged information provided at discharge. (5) Hyponatremia SNOMED Code(s): 29722399 Code(s): E87.1 - HYPO-OSMOLALITY AND HYPONATREMIA Status: Acute Priority: Medium Onset Date: 08/07/19 Annotation/Comment:: Borderline. Observe for now. Possible dehydration with 1 L lactated Ringer's IV bolus given in the emergency room. (6) Hypothyroidism (acquired) SNOMED Code(s): 716674705 Code(s): E03.9 - HYPOTHYROIDISM, UNSPECIFIED Status: Acute Priority: High Onset Date: 08/07/19 Annotation/Comment:: Mildly elevated TSH with history of oligomenorrhea and anxiety depression disorder as above. Various therapeutic options were discussed with the patient with initiation of low-dose Synthroid therapy. Repeat TSH in 4 weeks. - Problem List Review Problem List Initiated/Reviewed/Updated: Yes - My Orders Last 24 Hours: My Active Orders 08/07/19 21:54 Resuscitation Status Routine 08/07/19 21:55 Oxygen Therapy, ED [RC] PRN Peripheral IV Care [RC] . DIRECTED Pulse Oximetry [RC] CONTINUOUS Up With Assistance [RC] ASDIRECTED Chest 2V [CR] Stat Blood Culture x2 Reflex Set [OM.PC] Stat Obtain Past Medical Record [OM.PC] Stat Peripheral IV Insertion Adult [OM.PC] Stat 08/07/19 22:25 CULTURE BLOOD [BC] Stat 08/07/19 22:30 CULTURE STREP A CONFIRMATION [RM] Stat STREP SCRN A RAPID W CULT CONF [RM] Stat 08/07/19 22:40 CULTURE URINE [RM] Routine 08/07/19 22:50 CULTURE BLOOD [BC] Stat - Assessment/Plan Last 24 Hours: My Active Orders 08/07/19 21:54 Resuscitation Status Routine 08/07/19 21:55 Oxygen Therapy, ED [RC] PRN Peripheral IV Care [RC] . DIRECTED Pulse Oximetry [RC] CONTINUOUS Up With Assistance [RC] ASDIRECTED Chest 2V [CR] Stat Blood Culture x2 Reflex Set [OM.PC] Stat Obtain Past Medical Record [OM.PC] Stat Peripheral IV Insertion Adult [OM.PC] Stat 08/07/19 22:25 CULTURE BLOOD [BC] Stat 08/07/19 22:30 CULTURE STREP A CONFIRMATION [RM] Stat STREP SCRN A RAPID W CULT CONF [RM] Stat 08/07/19 22:40 CULTURE URINE [RM] Routine 08/07/19 22:50 CULTURE BLOOD [BC] Stat Assessment:: As above Plan: As above. Extensive precautions were given to the patient, who is in agreement with the treatment plan. See Patient Instructions for further treatment and plan.
[2019-08-07] MEDS ORDERED: Famotidine 20 MG/2 ML SDV IVPUSH ONE (21:58)
[2019-08-07] MEDS ORDERED: Lactated Ringers 1,000 ML IV ONE (21:58)
[2019-08-07] MEDS ORDERED: Ketorolac 30 MG/ML SDV IVPUSH ONE (21:58)
[2019-08-07 23:00] LABS: CHLORIDE,CL 100 mmol/L (98-107); SODIUM,NA 135 mmol/L (136-145)
[2019-08-07] MEDS ORDERED: cefTRIAXone 1 GM Vial IM ONE (23:19)
[2019-08-07] MEDS ORDERED: cefTRIAXone 1 GM in Sodium Chloride 0.9% 100 ML IV ONE (23:25)
== END 2019-08-08 00:51 | disposition home or self-care (01) ==
LOC: LL.ED 21:36
DX: N30.01 Acute cystitis with hematuria (principal); M54.5 Low back pain; F41.8 Other specified anxiety disorders; Z71.6 Tobacco abuse counseling; F17.210 Nicotine dependence, cigarettes, uncomplicated; E87.1 Hypo-osmolality and hyponatremia; E03.9 Hypothyroidism, unspecified; Z91.040 Latex allergy status; E66.9 Obesity, unspecified; Z68.34 Body mass index [BMI] 34.0-34.9, adult
CPT/HCPCS: 36415; 71046; 80053; 81001; 83605; 83735; 84443; 84550; 84703; 85025; 86308; 87040; 87081; 87086; 87088; 87186; 87430; 96365; 96375; 99284-25; J0696; J1885; J3490; J7050; J7120